=== PATIENT | female | born 1955 | race Caucasian/White ===

== ENCOUNTER → 2017-05-30 | Outpatient (CLI) | payer OTHER ==
[~2017-05-30] MED LIST: ACIDOPHILUS LA1 EACH PO; ALLEGRA180 MG PO; ASPIRIN LO-DOSE81 MG PO; BIEST TOP; CALCIUM WITH V1 EAC2 PO; ESTRADIOL/TESTOSTERO TOP; LEVOTHROID (SY50 MCG PO; MAGNESIUM500 MG PO; PERIACTIN4 MG PO; PROGESTERONE100 MG PO; STOOL SOFTENER100 M1 PO; VITAMIN B-121000 MCG PO; VITAMIN C500 M1 PO; VITAMIN D1000 UNIT PO
--- NOTE | ~2017-05-30 | ESTC ---
Cardiac Perfusion Imaging Demographics Patient Name YOKO Mitchell Gender Female Patient Number [id number] Race Visit Number [id number] Ethnicity Corporate ID Room Number Accession Number [id number] Height Date of 1955 Weight Age 61 year(s) BSA Referring Andrew Persaud MD BMI Physician Interpreting Andrew Persaud MD Date of study 05/30/2017 Physician Supervising /BEN Hancock NM Technologist SENIOR ANIMATOR Ordering Physician Andrew Robertson Stress Nuzhat Aric broadband technician RDCS, RVT Stress ECG Reading Cassie Hancock Nurse Physician SENIOR ANIMATOR Procedure Procedure Type: Nuclear Stress Test:Cardiolite Stress Test Procedure Start time: 05/30/2017 09:12 Indications: Chest discomfort and Dizziness. Risk Factors The patient risk factors include:hypertension, family history of premature CAD and prior valve surgery/procedure . Conclusions Summary Cardiolite SPECT images demonstrate homogenous uptake of radioactive tracer. NO evidence of inducible reversible defect and no evidence of underlying fixed defect. TID is mildly increased upon gross inspection. Gated images demonstrate normal left ventricular systolic function without inducible wall motion abnormalities. LVEF is 75% Stress Protocols Resting ECG SR with T wave inverstion V2, V3 Resting HR:54 bpm Resting BP:140/67 mmHg Pre-stress physical exam: Patient assessed by Jacky Carrillo APRN prior to testing. No complaint of chest pain at rest. Stress Protocol:Exercise Peak HR:124 bpm HR response: Appropriate Peak BP:160/58 mmHg BP response: Appropriate Predicted HR: 160 bpm HR/BP product:45398 % of predicted HR: 78 Max exercise: 7.2 METS Test duration:07:02 min Reason for termination:Target heart rate Exercise effort:Fair Perceived exertion:20 ECG Findings During treadmill EKG showed ST depression Lead II, III, AVF, V4, V5, V6 Arrhythmias None Symptoms Fatigue and shortness of breath. Stress Interpretation The electrocardiographic portion of the stress test was positive for ischemia. Blood pressure response was normal, heart rate response was abnormal for exertion. The East Treadmill Score was 0. This corresponds to a intermediate to high risk stress test. Unable to get HR up so test changed to [place]. Jacky Matthews APRN Imaging Results Summed scores - Summed stress score: 1 - Summed rest score: 0 - Summed difference score: 1 Stress ejection Ejection fraction:75 % EDV :67 ml ESV :17 ml Stroke volume :50 ml LV mass :93 gr Imaging Protocols Rest Stress Isotope:Tc99m Sestamibi IV Isotope: Tc99m Sestamibi IV Isotope dose:10.3 mCi Isotope dose:31.5 mCi Date:05/30/2017 07:25 Date:05/30/2017 10:03 Technique: SPECT Technique: Gated Supine SPECT Supine Scan Time:45-60 minutes post Scan Time:45-60 minutes post injection injection Medical History Admission Data Admission date: 05/30/2017 Admission Time: 06:48 Hospital Status: Outpatient. Signatures dtt: Hung Morales (cardio) dtd: 05/30/17 0912 Physician Self Edit
== END | disposition disaster alternative care site (69) ==
LOC: GRAD 06:48
DX: R06.02 Shortness of breath (principal); I10 Essential (primary) hypertension; Z82.49 Family history of ischemic heart disease and other diseases of the circulatory system
CPT/HCPCS: A9500; J2785

== ENCOUNTER 2017-06-03 21:56 | Observation (INO) | payer OTHER ==
[~2017-06-03] VITALS: Ht 154.9 cm; Wt 62.6 kg
--- NOTE | ~2017-06-03 | CATH ---
Cardiac Diagnostic Report Demographics Patient Name YOKO Mitchell Gender Female Date of 1955 Age 61 year(s) Patient Number [id number] Date of Study 06/04/2017 Visit Number [id number] Room Number G6[address] [place] [id number] Ht 154.94 cm Wt 62.6 kg Referring Andrew Persaud MD Primary Physician Physician Performing Andrew Persaud MD Secondary Physician Physician Diagnostic Andrew Persaud MD Assisting Physician Physician Interventional Physician Front Desk Administrator Physician Findings and Conclusions Diagnostic Findings and Conclusion Non obstructive CAD. Normal LV function. Routine post angioseal. Diagnostic Recommendations Medical therapy. Evaluation for noncardiac cause of chest pain. Procedure Description The patient was brought to the diagnostic cardiac catheterization-EP laboratory in the fasting, non-sedated state. Informed consent was obtained in the written and verbal form after the risks and benefits were explained. The patient had no further questions and agreed to proceed. The planned puncture-incision site(s) were shaved and prepped with ChloraPrep and draped in the usual sterile manner. Conscious sedation, supplemental oxygen, and pain control medications were delivered by a registered nurse under physician guidance. Surface ECG rhythm, blood pressure measurement, and pulse oximetry were monitored throughout the procedure. Arterial access. The access site was infiltrated with lidocaine. The vessel was entered with the Seldinger technique. A sheath was advanced into the vessel and used for catheter placement. Selective left coronary angiography. A catheter was advanced into the left coronary vessel ostium under Fluoroscopic guidance. Contrast was injected by hand. Images were obtained in multiple projections. Selective right coronary angiography. A catheter was advanced into the right coronary vessel ostium under fluoroscopic guidance. Contrast was injected by hand. Images were obtained in multiple projections. Left heart catheterization with ventriculography. A catheter was advanced across the aortic valve to the left ventricle under fluoroscopic guidance. Resting hemodynamics were obtained. With the catheter at the left ventricular apex, contrast was injected. Images were obtained in [place] projections. Post-ventriculography LV pressure was obtained. The catheter was gradually withdrawn into the aorta with continuous pressure recording. Arterial artery hemostasis was achieved. The patient was transferred to a regular nursing floor via cart accompanied by a nurse. The patient left the laboratory in stable condition. Diagnostic Cath Status: Urgent Procedure Procedure Type Diagnostic procedure:Ventriculogram:, Left, Angiography:, Coronary Angios w/[facility] Indications: Non-invasive tests a cardiolite test positive and Chest pain. The procedure was explained in detail to the patient. Risks, complications and alternative treatments were reviewed. Written consent was obtained. Medications Reviewed with Patient prior to Procedure. Angiographic Findings Dominance: Right Cardiac Arteries and Lesion Findings LMCA: Normal (0% Stenosis).Medium, normal LAD: LAD medium, septal proximal plaque Diag. 1 medium, normal LCx: Normal (0% Stenosis).CFX Large, non dominant, Normal. OM Large normal RCA: Normal (0% Stenosis).RCA medium tortuous, normal PL Medium OK PDA Medium OK Procedure Data Procedure Date Date: 06/04/2017Start: 09:11 AMEnd: 09:38 AM Entry Locations - Retrograde Percutaneous access was performed through the Right Femoral artery (Primary location). A 6 Fr sheath was inserted. Hemostasis was successfully obtained using Angio-Seal STS PLUS ([place]). Closure Comments: Angioseal deployed by RT. Kirk. Procedure Medications Order and Administration + + +--------+ + !Time !Medication !Dosage !Route ! + + +--------+ + !06/04/2017 09:07 AM !Versed !1 mg !I.V. ! + + +--------+ + !06/04/2017 09:10 AM !Fentanyl !50 mcg !I.V. ! + + +--------+ + !06/04/2017 09:12 AM !Versed !1 mg !I.V. ! + + +--------+ + !06/04/2017 09:27 AM !Heparin (ACC_3) ! !I.V. drip ! + + +--------+ + !06/04/2017 08:43 AM !Oxygen !2 l/min !NC ! + + +--------+ + !06/04/2017 09:35 AM !Oxygen ! !NC ! + + +--------+ + Devices Used - A6 Fr. BS JL 4 Diag. Catheterwas used for:Left coronary angiography. - A6 Fr. BS JR 4 Diag. Catheterwas used for:Right coronary angiography.Unable to cannulate the vessel. - A6 Fr. JJ 3DRC Diag. Catheterwas used for:Right coronary angiography. - A6 Fr. BS Angled Pigtail Diag. Catheterwas used for:Left ventriculography. Contrast Material - Isovue 940407 ml Fluoroscopy Time: Diagnostic: 4:54 minutes. Total: 4:54 minutes. Fluoroscopy Dose: Diagnostic: 274 mGy. Total: 274 mGy. Estimated Blood Loss: 3 ml. Medical History Allergies - Other:(dodine, demerol, doxycycline, erythromycin, bioxin). Risk Factors The patient risk factors include:treated hypertension, family history of premature CAD and prior valve surgery/procedure. Admission Data Admission Date: 06/03/2017 Admission Time: 11:50 PM Admit Source: Transfer [facility] Admission Medications + +------+------+ + + + + !Medication !Dosage!Times !Last !Last !Administered !Comments ! ! ! !Per !Delivery !Delivery ! ! ! ! ! !Day !Date !Time ! ! ! + +------+------+ + + + + !Nitrates (iv! ! ! ! !Yes ! ! !or buccal) ! ! ! ! ! ! ! + +------+------+ + + + + !Aspirin ! ! ! ! !Yes ! ! !(any) ! ! ! ! ! ! ! + +------+------+ + + + + Clinical Evaluation Leading to Procedure Diagnosed on 06/04/2017 09:00 AM. - The patient's CAD presentation was assessed as: Unstable angina. - The patient's anginal syndrome during the past two weeks was assessed as: Class III according to the [place] Cardiovascular [employer] Classification System (CCS). VA LV function assessed as:Normal. Ejection Fraction - 06/04/2017 - Method: LV gram. EF%: 65. Hemodynamics Condition: Rest O2 Consumption: Estimated: 146.10Heart Rate: 59 bpm Pressures (mmHg) +-----+ + !Site !Pressure ! +-----+ + !AO !156/71 (106) ! +-----+ + !LV !162/3 ,16 ! +-----+ + !LV !145/4 ,15 ! +-----+ + !LV !146/4 ,16 ! +-----+ + !LV !158/5 ,16 ! +-----+ + !AO !150/64 (102) ! +-----+ + !LV !159/5 ,17 ! +-----+ + Valve Gradients and Areas + +---------+---------+---------+ +---------+ + !Valve !Peak !Mean !Area !Index !Flow !Source ! + +---------+---------+---------+ +---------+ + !Aortic !10 !11 ! ! ! ! ! + +---------+---------+---------+ +---------+ + !Aortic !10 !11 ! ! ! ! ! + +---------+---------+---------+ +---------+ + Shunts Oxygen Values O2 Capacity 195.84 O2 Consumption 146.1 Discharge Data Discharge Date: 06/04/2017 Hospital Status: Inpatient Signatures dtt: Hung Morales (cardio) dtd: 06/04/17910 Physician Self Edit
--- NOTE | ~2017-06-03 | HP ---
PATIENT'S NAME: LIZ BABCOCK [facility] AGE: 61 Y [address] ROOM: [place] [address] LOCATION: GPCU ADMIT DATE: 06/03/2017 History & Physical DISCHARGE DATE: FAMILY PHYSICIAN: LUIS MANUEL VELASCO MD ATTENDING PHYSICIAN: SAL OCAMPO V DATE OF SERVICE: CHIEF COMPLAINT: Chest pain and dizziness. HISTORY OF PRESENT ILLNESS: The patient is a 61-year-old female who reports no past medical history until approximately 6 weeks ago when she started developing dizziness, further clarified as vertigo. The events are spontaneous and resolve spontaneously. As part of this dizziness, the patient also experiences chest pressure. She has had a workup, which included an echocardiogram, the results of which are unavailable right now, but she did have a stress test approximately 5 days ago. This was positive by EKG and symptoms and a cardiac catheterization has been planned for next week. However, the patient started having chest pain and was found to have bradycardia (previously known) while seeing the PMD today. She was evaluated in hospital in [place], where she had a sinus bradycardia with lateral T- wave depressions. Her cardiac enzymes were negative. The patient was communicated with Dr. Morales, the patient's data entry machine operator. He requested transfer to [facility] on heparin in anticipation of cardiac cath tomorrow. Dr. Morales discussed the case with me and requested that I admit this patient. At this point, she reports that her chest pain is approximately 1/10 and it is not reproducible. She denies any dizziness associated with this chest pain. She denies any shortness of breath, nausea, vomiting, diarrhea, chest pain, or palpitations. REVIEW OF SYSTEMS: All systems have been reviewed and are negative aside from pertinent positives mentioned above. PAST MEDICAL HISTORY: The patient denies. PAST SURGICAL HISTORY: Significant for hysterectomy. PATIENT'S NAME: LIZ BABCOCK [facility] AGE: 61 Y [address] ROOM: [place] [address] LOCATION: GPCU ADMIT DATE: 06/03/2017 History & Physical DISCHARGE DATE: FAMILY PHYSICIAN: LUIS MANUEL VELASCO MD ATTENDING PHYSICIAN: SAL OCAMPO V CURRENT MEDICATIONS: 1. Ascorbic acid. 2. Calcium carbonate. 3. Cholecalciferol. 4. Cyanocobalamin. 5. Cyproheptadine. 6. Colace. 7. Fexofenadine. 8. Lactobacillus. 9. Levothyroxine. 10. Magnesium oxide. 11. Progesterone. 12. Estradiol/testosterone. SOCIAL HISTORY: The patient does not have any history of ongoing toxic habits. FAMILY HISTORY: Positive for coronary artery disease in her mother in her 70s. PHYSICAL EXAMINATION: VITAL SIGNS: Blood pressure 150/80, heart rate is 52 and regular, saturating 96% on 2 L nasal cannula, respirations are 16, and she is afebrile. GENERAL: Well-developed, well-nourished middle-aged female, in no acute distress. NEUROLOGICAL: Exam is nonfocal. EYES: Exam shows pupils are equal and reactive to light. LYMPHATICS: Exam shows no cervical lymphadenopathy. ENDOCRINE: Exam shows no thyromegaly. LUNGS: Clear to auscultation in all lakhani. HEART: Exam reveals regular bradycardia with no appreciable murmurs, gallops, or rubs. GI: Abdomen is soft, nontender, nondistended. : No costovertebral angle tenderness. VASCULAR: A 2+ pedal pulses. MUSCULOSKELETAL: No muscle or joint abnormalities. PSYCHIATRIC: Appropriate mood, cognition, and affect. SKIN: Warm and dry. LABORATORY DATA: Studies performed so far is an EKG, which was just done here which shows sinus bradycardia at 51 beats per minute with some biphasic T-waves in leads V5 and V6. QTc is 453. Remainder of studies here is still pending. PATIENT'S NAME: LIZ BABCCOK [facility] AGE: 61 Y [address] ROOM: [address] [address] [facility] ADMIT DATE: 06/03/2017 History & Physical DISCHARGE DATE: FAMILY PHYSICIAN: LUIS MANUEL VELASCO MD ATTENDING PHYSICIAN: SAL OCAMPO V ASSESSMENT AND PLAN: This is a 61-year-old female who is being admitted with chest pain and a recent positive stress test. As per recommendations from Cardiology, we will continue the patient on heparin. We will draw a repeat set of cardiac enzymes now. We will keep her n.p.o. in anticipation of a stress test. 1. Dizziness/vertigo. We will check a CT of her head to make sure there is not an underlying structural etiology for her symptoms. 2. Bradycardia. This appears to be hemodynamically stable and we will not give the patient any beta-blockers. 3. Additional management will depend on the outcome of the CAT scan and a planned cardiac catheterization. Time dedicated to this patient encounter is 35 minutes. MD LILLIANA CALLES/gillian /[id number] D: [id number] T: [id number] HISTORY & PHYSICAL
[~2017-06-03 21:56] MED LIST changes: -ASPIRIN LO-DOSE81 MG PO
[2017-06-04 01:14] LABS: BASOPHIL % 0.4 %; EOSINOPHIL # 0.3 K/uL (0.0-0.5); EOSINOPHIL % 3.1 %; HEMATOCRIT 40.8 % (33.0-46.0); HEMOGLOBIN 14.4 g/dL (10.0-15.0); IMMATURE GRANULOCYTE # 0.1 K/uL (0.0-0.3); IMMATURE GRANULOCYTE % 0.5 %; LYMPHOCYTE # 4.1 K/uL (0.8-4.0); MCH 31.9 pg (27.0-34.0); MCHC 35.3 gm/dL (32.0-36.5); MCV 90.5 fl (83.0-98.0); MONOCYTE # 0.7 K/uL (0.0-1.0); MONOCYTE % 6.6 %; MPV 10.1 fl (9.4-12.4); NEUTROPHIL # (ANC) 5.8 K/uL (1.8-7.8); NEUTROPHIL % 52.4 %; NRBC % 0 /100WBC (0-0.00); PLATELET COUNT 231 K/uL (150-450); RBC 4.51 M/uL (3.50-5.50); RDW-CV 11.7 % (11.9-14.6)
[2017-06-04 01:29] LABS: INR - (THERAPEUTIC) 0.95 (0.92-1.07)
[2017-06-04 01:46] LABS: CPK 99 IU/L (21-215)
--- NOTE | 2017-06-04 02:46 | NUR ---
Patient is a 61 year old female from [place], who recently had a positive stress test and a planned heart cath for Thursday 06/07. Patient went to the ER with 5/10 chest pain that radiated to her left shoulder. contacted and accepted direct admit with plan to cath on Tuesday. Cardiac enzymes negative and with some EKG changes. Patient arrives to PCU in stable condition CP rating a 1 to zero. VSS. to admit and assess the patient.
--- NOTE | 2017-06-04 05:02 | NUR ---
Significant Event:A/Ox3. HR naman in the 40's. Other VSS. Weaned to 2L/NC for ACS protocol. Heparin at 800units/h with next ptthp at 0730. NS 30ml/h. Transfers SBA. No c/o pain. CT of Head negative. CE negative. Plan is for heart cath today per report. Patient has been NPO since admission. R)groin prepped for cath. No orders for cath at this time, surgical checklist started. Follow up:Pre/Post Heart cath.
[2017-06-04] MEDS ORDERED: ASPIRIN LO-DOSE81 MG PO (15:14)
== END 2017-06-04 15:25 | disposition disaster alternative care site (69) ==
LOC: GPCU 21:56
PROVIDERS: ADMIT Internal Medicine
PROC: 4A023N7 Measurement of Cardiac Sampling and Pressure, Left Heart, Percutaneous Approach (ICD-10-PCS; principal; 2017-06-04)
PROC: B2151ZZ Fluoroscopy of Left Heart using Low Osmolar Contrast (ICD-10-PCS; 2017-06-04)
PROC: B2111ZZ Fluoroscopy of Multiple Coronary Arteries using Low Osmolar Contrast (ICD-10-PCS; 2017-06-04)
DX: I25.110 Atherosclerotic heart disease of native coronary artery with unstable angina pectoris (principal); R00.1 Bradycardia, unspecified; R42 Dizziness and giddiness; E03.9 Hypothyroidism, unspecified; Z90.710 Acquired absence of both cervix and uterus; Z82.49 Family history of ischemic heart disease and other diseases of the circulatory system; Z88.1 Allergy status to other antibiotic agents; Z88.8 Allergy status to other drugs, medicaments and biological substances
CPT/HCPCS: C1760; J1644; J2250; J2405; J3010; J7030